=== PATIENT | male | born 1975 | race Two or more races ===

== ENCOUNTER 2020-12-08 15:43 | Inpatient (IN) ==
[2020-12-08 16:44] LABS: Albumin 4.1 G/DL (3.4-5.0); Bilirubin,Total 1.3 MG/DL (0.2-1.0); Potassium 3.3 MMOL/L (3.5-5.1); Total Protein 7.2 G/DL (6.4-8.2)
[2020-12-08 16:56] LABS: Osmolality,Calculated 232.9 MOS/KG (273-304)
[2020-12-08 16:58] LABS: Basophils % 0.1 % (0.0-0.8); Hematocrit 44.1 VOL% (42.0-52.0); Hemoglobin 17.3 GM/DL (14.0-18.0); Immature Granulocytes % 0.5 %; Immature Granulocytes Absolute 0.04 #; Lymphocytes # 0.9 10*3/uL (1.4-4.0); Lymphocytes % 11.3 % (21.2-54.2); Mean Corpuscular HGB Conc 39.2 GM/DL (32-36); Mean Corpuscular Volume 80.8 FL (87-102); Mean Platelet Volume 10.2 FL (9.6-12.0); Monocytes % 6.7 % (1.7-12.7); Neutrophils % 81.4 % (38.7-73.9); Platelet Count 325 T/CUMM (130-400); Red Blood Count 5.46 MC/CUMM (3.8-5.5); Red Cell Distribution Width 11.6 % (9.3-17.3); White Blood Count 8.1 T/CUMM (4-12)
[2020-12-08] MEDS ORDERED: SODIUM CHLORIDE 0.9% 1,000 ML IV STA (16:59)
[2020-12-08] MEDS ORDERED: THIAMINE INJ 100 MG, FOLIC ACID INJ 1 MG, MAGNESIUM SULF INJ 2 GM, MULTIVITAMIN INJ 10 ... IV ONE (17:07)
[2020-12-08] MEDS ORDERED: ONDANSETRON 4 MG/2 ML VIAL IV ONE (17:11)
[2020-12-08] MEDS ORDERED: POTASSIUM CHLORIDE 20 MEQ TABLET PO ONE (17:16)
[2020-12-08] MEDS ORDERED: ALBUTEROL/IPRATROPIUM 3 ML NEB RESP TX STA (17:30)
[2020-12-08] MEDS ORDERED: SODIUM CHLORIDE 0.9% 1,000 ML IV SCH (17:30)
[2020-12-08] MEDS ORDERED: hydrALAZINE 20 MG/1 ML VIAL IV PRN (17:35)
[2020-12-08] MEDS ORDERED: DEXTROSE 50% 25 GM/50 ML VIAL IV PRN (17:35)
[2020-12-08] MEDS ORDERED: GLUCAGON 1 MG VIAL IM PRN (17:35)
[2020-12-08] MEDS: ONDANSETRON 4 MG/2 ML VIAL IV PRN ×3 (17:43→23:45)
[2020-12-08] MEDS: ALBUTEROL 2.5 MG/3 ML NEB RESP TX SCH (19:32)
[2020-12-08] MEDS: chlordiazePOXIDE 25 MG CAPSULE PO SCH ×2 (19:59→23:47)
[2020-12-08] MEDS: PIPERACILLIN/TAZOBACTAM 3,375 MG in SODIUM CHLORIDE 0.9% 100 ML IV SCH (20:01)
[2020-12-08] MEDS: LORazepam 2 MG/1 ML VIAL IV PRN ×2 (20:28→23:47)
[2020-12-08] MEDS: ENOXAPARIN 40 MG/0.4 ML SYRINGE SUBCUT SCH (20:32)
[2020-12-09] MEDS: PIPERACILLIN/TAZOBACTAM 3,375 MG in SODIUM CHLORIDE 0.9% 100 ML IV SCH ×2 (02:05→09:45)
[2020-12-09] MEDS: ALBUTEROL 2.5 MG/3 ML NEB RESP TX SCH ×4 (03:05→19:25)
[2020-12-09] MEDS: ONDANSETRON 4 MG/2 ML VIAL IV PRN ×4 (03:59→20:24)
[2020-12-09] MEDS: LORazepam 2 MG/1 ML VIAL IV PRN ×2 (04:00→20:28)
[2020-12-09] MEDS: chlordiazePOXIDE 25 MG CAPSULE PO SCH ×3 (05:40→17:30)
[2020-12-09 06:12] LABS: Albumin 3.6 G/DL (3.4-5.0); Bilirubin,Total 1.5 MG/DL (0.2-1.0); Osmolality,Calculated 226.2 MOS/KG (273-304); Potassium 3.3 MMOL/L (3.5-5.1); Total Protein 6.2 G/DL (6.4-8.2)
[2020-12-09 06:15] LABS: Basophils % 0.1 % (0.0-0.8); Hematocrit 39.6 VOL% (42.0-52.0); Immature Granulocytes % 0.6 %; Immature Granulocytes Absolute 0.11 #; Lymphocytes # 0.9 10*3/uL (1.4-4.0); Lymphocytes % 4.7 % (21.2-54.2); Mean Corpuscular HGB Conc 37.9 GM/DL (32-36); Mean Corpuscular Volume 82.5 FL (87-102); Mean Platelet Volume 10.3 FL (9.6-12.0); Monocytes % 8.4 % (1.7-12.7); Neutrophils % 86.2 % (38.7-73.9); Platelet Count 259 T/CUMM (130-400); Red Cell Distribution Width 11.5 % (9.3-17.3); White Blood Count 19.6 T/CUMM (4-12)
[2020-12-09 06:50] LABS: Band Neutrophils 1 % (0-10); Lymphocytes 3 % (20-55); Segmented Neutrophils 92 % (50-85); Total Cells Counted 100
[2020-12-09 06:52] LABS: Hypochromasia 1+; Microcytosis 1+
[2020-12-09 06:53] LABS: Platelet Estimate Normal
[2020-12-09] MEDS: THIAMINE 100 MG TABLET PO SCH (09:45)
[2020-12-09] MEDS: PANTOPRAZOLE 40 MG TABLET PO SCH (09:45)
[2020-12-09] MEDS: FOLIC ACID 1 MG TABLET PO SCH (09:45)
[2020-12-09] MEDS: MULTIVITAMIN (CENTRUM) TABLET PO SCH (09:45)
[2020-12-09] MEDS: SODIUM CHLORIDE 0.9% 1,000 ML IV SCH ×2 (10:13→17:30)
[2020-12-09] MEDS ORDERED: MAGNESIUM SULF RIDER 2 GM in PREMIX 1 EACH IV ONE (16:00)
[2020-12-09] MEDS: MAGNESIUM OXIDE 400 MG TABLET PO SCH (20:39)
[2020-12-09] MEDS: ENOXAPARIN 40 MG/0.4 ML SYRINGE SUBCUT SCH (20:40)
[2020-12-10] MEDS: ALBUTEROL 2.5 MG/3 ML NEB RESP TX SCH ×4 (00:02→19:25)
[2020-12-10] MEDS: chlordiazePOXIDE 25 MG CAPSULE PO SCH ×4 (00:54→17:28)
[2020-12-10 06:10] LABS: Basophils % 0.3 % (0.0-0.8); Hematocrit 38.6 VOL% (42.0-52.0); Hemoglobin 13.8 GM/DL (14.0-18.0); Immature Granulocytes % 0.5 %; Immature Granulocytes Absolute 0.03 #; Lymphocytes # 0.9 10*3/uL (1.4-4.0); Lymphocytes % 14.8 % (21.2-54.2); Mean Corpuscular HGB Conc 35.8 GM/DL (32-36); Mean Corpuscular Volume 86.7 FL (87-102); Monocytes % 9.4 % (1.7-12.7); Platelet Count 158 T/CUMM (130-400); Red Blood Count 4.45 MC/CUMM (3.8-5.5); Red Cell Distribution Width 11.9 % (9.3-17.3); White Blood Count 6.2 T/CUMM (4-12)
[2020-12-10 07:12] LABS: Calcium 8.2 MG/DL (8.5-10.1); Osmolality,Calculated 263.5 MOS/KG (273-304); Potassium 3.1 MMOL/L (3.5-5.1)
[2020-12-10] MEDS: SODIUM CHLORIDE 0.9% 1,000 ML IV SCH ×5 (08:12→20:51)
[2020-12-10] MEDS: PANTOPRAZOLE 40 MG TABLET PO SCH (09:12)
[2020-12-10] MEDS: MAGNESIUM OXIDE 400 MG TABLET PO SCH ×2 (09:12→20:43)
[2020-12-10] MEDS: MULTIVITAMIN (CENTRUM) TABLET PO SCH (09:12)
[2020-12-10] MEDS: FOLIC ACID 1 MG TABLET PO SCH (09:12)
[2020-12-10] MEDS: THIAMINE 100 MG TABLET PO SCH (09:12)
[2020-12-10] MEDS: POTASSIUM CHLORIDE 10 MEQ TABLET PO SCH ×2 (09:12→20:43)
[2020-12-10] MEDS: LORazepam 2 MG/1 ML VIAL IV PRN (20:42)
[2020-12-10] MEDS: ENOXAPARIN 40 MG/0.4 ML SYRINGE SUBCUT SCH (20:43)
[2020-12-11] MEDS: chlordiazePOXIDE 25 MG CAPSULE PO SCH ×3 (00:26→12:27)
[2020-12-11] MEDS: ALBUTEROL 2.5 MG/3 ML NEB RESP TX SCH ×2 (01:57→07:51)
[2020-12-11] MEDS: SODIUM CHLORIDE 0.9% 1,000 ML IV SCH (03:46)
[2020-12-11 06:31] LABS: Basophils % 0.9 % (0.0-0.8); Eosinophils # 0.1 10*3/uL (0.0-0.87); Eosinophils % 1.2 % (0.00-10.9); Hematocrit 38.3 VOL% (42.0-52.0); Hemoglobin 13.3 GM/DL (14.0-18.0); Immature Granulocytes % 0.7 %; Immature Granulocytes Absolute 0.03 #; Lymphocytes % 23.8 % (21.2-54.2); Mean Corpuscular HGB Conc 34.7 GM/DL (32-36); Mean Corpuscular Volume 89.1 FL (87-102); Mean Platelet Volume 11.4 FL (9.6-12.0); Neutrophils % 64.4 % (38.7-73.9); Platelet Count 142 T/CUMM (130-400); White Blood Count 4.3 T/CUMM (4-12)
[2020-12-11 06:57] LABS: Calcium 8.5 MG/DL (8.5-10.1)
[2020-12-11 07:22] VITALS: BP 132/85
[2020-12-11] MEDS: FOLIC ACID 1 MG TABLET PO SCH (09:51)
[2020-12-11] MEDS: MAGNESIUM OXIDE 400 MG TABLET PO SCH (09:51)
[2020-12-11] MEDS: MULTIVITAMIN (CENTRUM) TABLET PO SCH (09:51)
[2020-12-11] MEDS: POTASSIUM CHLORIDE 10 MEQ TABLET PO SCH (09:51)
[2020-12-11] MEDS: THIAMINE 100 MG TABLET PO SCH (09:51)
[2020-12-11] MEDS: PANTOPRAZOLE 40 MG TABLET PO SCH (09:51)
== END 2020-12-11 12:48 | disposition home or self-care (01) | DRG 897 ==
LOC: N.ED 15:43 → N.EDINP 15:43 → N.3E 18:39
PROVIDERS: ADMIT Emergency Medicine; ATTEND Emergency Medicine

== ENCOUNTER 2022-01-14 12:12 | Inpatient (IN) ==
[2022-01-14] MEDS ORDERED: SODIUM CHLORIDE 0.9% 1,000 ML IV STA ×2 (12:54→14:45)
[2022-01-14] MEDS ORDERED: LORazepam 1 MG TABLET PO STA (12:54)
[2022-01-14] MEDS ORDERED: ONDANSETRON ODT 4 MG TABLET PO STA (12:54)
[2022-01-14 13:10] LABS: Basophils % 0.2 % (0.0-0.8); Hematocrit 45.1 VOL% (42.0-52.0); Immature Granulocytes % 0.6 %; Immature Granulocytes Absolute 0.08 #; Lymphocytes # 0.7 10*3/uL (1.4-4.0); Lymphocytes % 4.6 % (21.2-54.2); Mean Corpuscular HGB Conc 35.5 GM/DL (32-36); Mean Corpuscular Volume 88.1 FL (87-102); Monocytes # 0.9 10*3/uL (0.11-0.8); Monocytes % 5.9 % (1.7-12.7); Neutrophils % 88.7 % (38.7-73.9); Platelet Count 256 T/CUMM (130-400); Red Blood Count 5.12 MC/CUMM (3.8-5.5); Red Cell Distribution Width 11.7 % (9.3-17.3); White Blood Count 14.4 T/CUMM (4-12)
[2022-01-14 13:26] LABS: Amylase 41 U/L (25-115)
[2022-01-14 13:32] LABS: Albumin 4.1 G/DL (3.4-5.0); Bilirubin,Total 1.7 MG/DL (0.20-1.00); Calcium 9.6 MG/DL (8.5-10.1); Osmolality,Calculated 256.4 MOS/KG (273-304); Potassium 3.7 MMOL/L (3.5-5.1); Total Protein 7.3 G/DL (6.4-8.2)
[2022-01-14 14:01] LABS: Lymphocytes 3 % (20-55); Platelet Estimate Adequate; Reactive Lymphocytes Few; Total Cells Counted 100
[2022-01-14 14:08] LABS: Barbiturates Screen,Urine Negative (Negative); Benzodiazepines Screen,Urine Negative (Negative); Cannabinoid Screen,Urine Negative (Negative); Opiate Screen,Urine Negative (Negative); Phencyclidine Screen,Urine Negative (Negative)
[2022-01-14] MEDS ORDERED: chlordiazePOXIDE 25 MG CAPSULE PO ONE (14:16)
[2022-01-14] MEDS: chlordiazePOXIDE 25 MG CAPSULE PO SCH ×3 (15:22→23:40)
[2022-01-14 15:26] LABS: Folate > 24.00 NG/ML (5.38-24.0); Vitamin B12 473 PG/ML (211-911)
[2022-01-14] MEDS: LORazepam 2 MG/1 ML VIAL IV PRN (15:35)
[2022-01-14] MEDS: SODIUM CHLORIDE 0.9% 1,000 ML IV SCH (17:00)
[2022-01-14 19:17] LABS: High Sensitive Troponin I* 29.5 ng/L (0-78)
[2022-01-15] MEDS: chlordiazePOXIDE 25 MG CAPSULE PO SCH ×6 (03:49→23:48)
[2022-01-15] MEDS: SODIUM CHLORIDE 0.9% 1,000 ML IV SCH (03:49)
[2022-01-15 05:48] LABS: Albumin 3.2 G/DL (3.4-5.0); Bilirubin,Total 1.3 MG/DL (0.20-1.00); Calcium 8.7 MG/DL (8.5-10.1); Osmolality,Calculated 280.3 MOS/KG (273-304); Potassium 3.7 MMOL/L (3.5-5.1); Total Protein 6.1 G/DL (6.4-8.2)
[2022-01-15] MEDS: LORazepam 2 MG/1 ML VIAL IV PRN (07:43)
[2022-01-15] MEDS: MULTIVITAMIN (CENTRUM) TABLET PO SCH (08:10)
[2022-01-15] MEDS: FOLIC ACID 1 MG TABLET PO SCH (08:10)
[2022-01-15] MEDS: THIAMINE 200 MG/2 ML VIAL IV SCH (17:20)
[2022-01-15] MEDS: BRIMONIDINE 0.1% OPH SOLN 5 ML BOTTLE BOTH EYES SCH (20:01)
[2022-01-16 05:14] LABS: PT Patient Result 10.7 SECS (10.5-12.0); Partial Thromboplastin Time 29.5 SECS (23.8-32.1)
[2022-01-16 05:37] LABS: Albumin 3.1 G/DL (3.4-5.0); Bilirubin,Total 0.7 MG/DL (0.20-1.00); Calcium 8.8 MG/DL (8.5-10.1); Osmolality,Calculated 278.4 MOS/KG (273-304); Potassium 3.2 MMOL/L (3.5-5.1); Total Protein 6.3 G/DL (6.4-8.2)
[2022-01-16] MEDS: chlordiazePOXIDE 25 MG CAPSULE PO SCH (05:59)
[2022-01-16] MEDS: SODIUM CHLORIDE 0.9% 1,000 ML IV SCH ×2 (06:45→10:09)
[2022-01-16 08:44] VITALS: BP 146/92
[2022-01-16 08:46] LABS: Basophils % 0.9 % (0.0-0.8); Eosinophils # 0.1 10*3/uL (0.0-0.87); Eosinophils % 2.7 % (0.00-10.9); Hematocrit 45.8 VOL% (42.0-52.0); Hemoglobin 15.3 GM/DL (14.0-18.0); Immature Granulocytes % 0.2 %; Immature Granulocytes Absolute 0.01 #; Lymphocytes # 1.3 10*3/uL (1.4-4.0); Lymphocytes % 29.5 % (21.2-54.2); Mean Corpuscular HGB Conc 33.4 GM/DL (32-36); Mean Corpuscular Volume 94.2 FL (87-102); Mean Platelet Volume 11.3 FL (9.6-12.0); Monocytes # 0.4 10*3/uL (0.11-0.8); Monocytes % 9.8 % (1.7-12.7); Neutrophils % 56.9 % (38.7-73.9); Platelet Count 159 T/CUMM (130-400); Red Blood Count 4.86 MC/CUMM (3.8-5.5); Red Cell Distribution Width 12.2 % (9.3-17.3); White Blood Count 4.5 T/CUMM (4-12)
[2022-01-16] MEDS: FOLIC ACID 1 MG TABLET PO SCH (09:50)
[2022-01-16] MEDS: MULTIVITAMIN (CENTRUM) TABLET PO SCH (09:50)
[2022-01-16] MEDS: THIAMINE 200 MG/2 ML VIAL IV SCH (09:50)
[2022-01-16] MEDS: BRIMONIDINE 0.1% OPH SOLN 5 ML BOTTLE BOTH EYES SCH (10:09)
== END 2022-01-16 11:00 | disposition home or self-care (01) | DRG 897 ==
LOC: N.ED 12:12 → SUATTDRO 16:10 → N.EDINP 16:10 → N.TELEN 18:00
PROVIDERS: ADMIT Family Medicine; ATTEND Internal Medicine